=== PATIENT | female | born 1980 | race African-American/Black ===

== ENCOUNTER 2020-07-13 10:29 | Emergency (ER) | payer MEDICAID ==
[~2020-07-13] VITALS: Ht 157.5 cm; Wt 53.3 kg
[2020-07-13 10:35] VITALS: BP 143/104
[2020-07-13] MEDS ORDERED: HYDROcodone/APAP 5/325 TABLET ONE (10:59)
[2020-07-13] MEDS ORDERED: HYDROcodone/APAP 5/325 TABLET PO ONE (11:30)
== END 2020-07-13 11:28 | disposition home or self-care (01) ==
LOC: ED 11:00
DX: K02.9 Dental caries, unspecified (principal); R10.10 Upper abdominal pain, unspecified
CPT/HCPCS: 99283